=== PATIENT | female | born 1940 | race Caucasian/White ===

== ENCOUNTER 2017-02-04 13:22 | Inpatient (IN) | payer OTHER, BC ==
[~2017-02-04] VITALS: Ht 162.6 cm; Wt 68.0 kg
--- NOTE | ~2017-02-04 | EKG ---
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 : 1940 Requested By: Rishi Mota Order Number: [id number] MD: Juan Barber Measurements Intervals [place] Rate: 79 P: 26 VT: 172 QRS: -24 QRSD: 96 T: 125 QT: 385 QTc: 442 Interpretive Statements Sinus rhythm LVH with secondary repolarization abnormality Anterior Q waves, possibly due to LVH Compared to ECG 08/10/2012 13:04:29 Left ventricular hypertrophy now present ST and T wave abnormality is now present Electronically Signed On 02-05-2017 9:02:30 CDT by Juan Barber [email or web address] <ELECTRONICALLY SIGNED> By: Juan Barber MD, FACC 02/05/17 [id number] [id number] Juan Barber MD, [facility] /EPI
--- NOTE | ~2017-02-04 | 2DMMODE ---
[facility] [address] [place] [address] 2 D/M-MODE ECHOCARDIOGRAM Name: SALOME VALDEZ Room #: 429-P [facility]#: [id number] Admission: 02/05/17 Attend Phys: Esa Moulton, Discharge: Date of : 38 Date of Service: 02/05/17 1228 Report #: [id number] THIS REPORT FOR: //name// APPROVED REPORT Study performed: 02/05/2017 11:37:23 EXAM: Comprehensive 2D, Doppler, and color-flow Echocardiogram Patient Location: Bedside Room #: 429 Status: routine BSA: 1.73 HR: 83 bpm BP: 174/75 mmHg Other Information Study Quality: Good Indications CVA/TIA Diabetes Hypertension/HDD Echo Enhancing Agent Indication: Rule out Shunt Agent(s) / Amount(s) Used: Agitated Saline 7 cc 2D Dimensions RVDd: 33.78 mm LVEF(%): 59.39 (>50%) IVSd: 9.81 (7-11mm) LVOT Diam: 22.12 (18-24mm) LVDd: 54.73 mm PWd: 10.03 (7-11mm) Ascending Ao: 31.52 (22-36mm) LVDs: 37.28 (25-40mm) Aortic Root: 31.06 mm IVC: 18.00 mm Dejesus's LVEF: 59.39 % Volumes Left Atrial Volume (Systole) Single Plane 4CH: 48.41 mL Single Plane 2CH: 50.80 mL LA ESV Index: 32.00 mL/m2 Aortic Valve AoV Peak Fabian.: 1.66 m/s AO Peak Gr.: 10.99 mmHg LVOT Max P.97 mmHg LVOT Max V: 1.00 m/s [facility] [place] [address] 2 D/M-MODE ECHOCARDIOGRAM Name: SALOME VALDEZ Room #: 429-P [facility] .R.#: [id number] Admission: 02/05/17 Attend Phys: Esa Moulton, Discharge: Date of : 38 Date of Service: 02/05/17 1228 Report #: [id number] CARL Vmax: 2.31 cm2 Mitral Valve E/A Ratio: 0.7 MV Decel. Time: 335.62 ms MV E Max Fabian.: 0.65 m/s MV A Fabian.: 0.90 m/s MV PHT: 97.33 ms IVRT: 143.02 ms Pulmonary Valve PV Peak Fabian.: 0.95 m/s PV Peak Gr.: 3.62 mmHg Pulmonary Vein P Vein S: 0.59 m/s P Vein A: 0.28 m/s P Vein D: 0.28 m/s P Vein A Dur.: 92.3 msec P Vein S/D Ratio: 2.11 Left Ventricle The left ventricle is normal size. There is normal left ventricular wall thickness. The left ventricular systolic function is normal. The left ventricular ejection fraction is within the normal range. LVEF is 60-65%. Grade I - abnormal relaxation pattern. Right Ventricle The right ventricle is normal size. The right ventricular systolic function is normal. Atria The left atrium size is normal. Interatrial septum is intact without evidence of ASD or PFO. The right atrium size is normal. Aortic Valve The aortic valve is normal in structure. No aortic regurgitation is present. There is no aortic valvular stenosis. Mitral Valve The mitral valve is normal in structure. Trace mitral regurgitation. No evidence of mitral valve stenosis. Tricuspid Valve The tricuspid valve is normal in structure. There is no tricuspid valve regurgitation noted. Pulmonic Valve The pulmonary valve is normal in structure. There is no pulmonic [address] [address] 2 D/M-MODE ECHOCARDIOGRAM Name: SALOME VALDEZ Room #: 429-P [facility].#: [id number] Admission: 02/05/17 Attend Phys: Esa Moulton, Discharge: Date of : 38 Date of Service: 02/05/17 1228 Report #: [id number] valvular regurgitation. Great Vessels The aortic root is normal in size. IVC is normal in size and collapses >50% with inspiration. Pericardium There is no pericardial effusion. <Conclusion> LVEF is 60-65%. The left atrium size is normal. The right atrium size is normal. Interatrial septum is intact without evidence of ASD or PFO. The aortic valve is normal in structure. The mitral valve is normal in structure. Trace mitral regurgitation. The tricuspid valve is normal in structure. The pulmonary valve is normal in structure. There is no pericardial effusion. <ELECTRONICALLY SIGNED> By: Ari Franco MD 02/05/17 1228 1228 27 Ari Franco MD /INF
[~2017-02-04 13:22] MED LIST: AUGMENTIN 875875 MG PO; B12INJ; CALCIUM +D & M1 EACH PO; CINNAMON BARK1 GM PO; COQ-10100 MG PO; CYMBALTA60 MG; FISH OIL 1,2001 EAC4 PO; FLAXSEED1000 MG PO; FOLIC ACID1 MG; FUROSEMIDE 20 M20 M1; GABAPENTIN; GLUCOPHAGE1000 MG PO; GLUCOSAMINE-MS1 EAC3 PO; HYDROCHLOROTHIA25 M1; HYDROCODON-ACE1 EAC5 PO; INVANZ 1GM/NS 101 GM; KEFLEX500 M1 PO; LIDODERM 5%1 PATCH TOP; LIPITOR20 MG; METFORMIN HCL500 MG PO; MOBIC15 MG PO; MULTIVITAMINS1 EAC7 PO; NEURONTIN600 MG PO; NORCO 10-325 T1 EACH PO; OXYCONTIN10 M1; PERCOCET 5-3251 EACH PO; PERCOCET PO; POTASSIUM20; PREDNISONE 5 MG5 M1 PO; PROLIA60 MG/1 ML SQ; RESVERATROL250 MG PO; VALIUM5 MG PO; VANCOMYCIN1 GM/100 M; ZANTAC 150MG T150 M1; [UNRECOGNIZED DRUG - OTHER]
[2017-02-04 13:25] VITALS: BP 85/48
[2017-02-04 13:46] LABS: HEMATOCRIT 40.8 % (37.0-47.0); HEMOGLOBIN 13.7 gm/dL (12.0-15.0); MCH 29.6 pg (26.0-34.0); MCHC 33.5 g/dL (28.0-37.0); MCV 88.5 fL (80.0-100.0); PLATELET COUNT 180 thou/uL (150-400); RBC 4.61 mil/uL (4.20-5.00); RDW 13.5 % (10.5-14.5); WBC 3.9 thou/uL (4.0-11.0)
[2017-02-04 13:47] LABS: MANUAL DIFF YES
[2017-02-04 13:59] LABS: PROTIME 10.5 Seconds (9.3-11.4)
[2017-02-04] MEDS ORDERED: CELEBREX 200 M200 M1 PO (14:07)
[2017-02-04 14:24] LABS: ALBUMIN 3.5 g/dL (3.4-5.0); ALKALINE PHOSPHATASE 94 U/L (46-116); BUN 22 mg/dL (7-18); CALCIUM 8.9 mg/dL (8.5-10.1); CO2 30 mmol/L (21-32); CREATININE 1.2 mg/dL (0.6-1.0); GLUCOSE 249 mg/dL (74-106); SGOT 30 U/L (15-37); SGPT 23 U/L (30-65); TOTAL BILIRUBIN 0.5 mg/dL (<0.1-1.0); TOTAL PROTEIN 6.7 g/dL (6.4-8.2); TROPONIN-I < 0.04 ng/mL (<0.04-0.07)
[2017-02-04 14:32] LABS: ANION GAP 6 mmol/L (7-16); CHLORIDE 97 mmol/L (98-107); SODIUM 133 mmol/L (136-145)
[2017-02-04 14:35] LABS: POTASSIUM 2.9 mmol/L (3.5-5.1)
[2017-02-04 14:39] LABS: ABSOLUTE NEUTROPHILS 3.4 thou/uL (1.4-8.2); ANISOCYTOSIS 1+; MICROCYTES SLIGHT; TOTAL CELL COUNT 100
[2017-02-04 14:46] VITALS: BP 108/57
[2017-02-04 14:50] LABS: URINE BILIRUBIN NEGATIVE (Negative); URINE BLOOD NEGATIVE (Negative); URINE COLOR YELLOW; URINE GLUCOSE-RANDOM* NEGATIVE (Negative); URINE KETONES NEGATIVE (Negative); URINE NITRITE NEGATIVE (Negative); URINE PROTEIN (DIPSTICK) NEGATIVE (Negative); URINE UROBILINOGEN 0.2 E.U./dl (0.2-1.0)
[2017-02-04 16:22] VITALS: BP 126/66
[2017-02-04 17:10] LABS: TSH 1.334 uIU/mL (0.358-3.740)
[2017-02-04 17:36] LABS: FOLIC ACID 38.8 ng/mL (8.6-58.9)
[2017-02-04] MEDS ORDERED: PERCOCET 7.5-31 EACH PO (17:37)
[2017-02-04] MEDS ORDERED: CRANBERRY300 MG (17:40)
[2017-02-04 19:59] VITALS: BP 156/88
[2017-02-05 03:21] VITALS: BP 174/95
[2017-02-05 04:12] LABS: GLYCOHEMOGLOBIN (HGB A1C) 5.9 % (4.8-5.6)
[2017-02-05 06:40] LABS: CALCIUM 8.8 mg/dL (8.5-10.1); CREATININE 0.7 mg/dL (0.6-1.0); MAGNESIUM 1.7 mg/dL (1.8-2.4)
[2017-02-05 06:53] LABS: CHOLESTEROL 179 mg/dL (<200); HDL CHOLESTEROL 86 mg/dL (>40); LDL CHOLESTEROL 77 mg/dL (<100); TC:HDL 2.1 Ratio (Not establshd); TRIGLYCERIDE 81 mg/dL (<150); VLDL 16 mg/dL (<40)
[2017-02-05 15:39] VITALS: BP 165/101
[2017-02-05] MEDS ORDERED: ASPIR 8181 MG PO (16:01)
[2017-02-05 16:02] VITALS: BP 165/101
[2017-02-05 16:47] VITALS: BP 145/81
== END 2017-02-05 17:28 | disposition home or self-care (01) | DRG 314 ==
LOC: ER 13:22 → EROBS 15:35 → 4E 15:35 → ENTRNSPT 02-05 16:46 → 4E 02-05 17:28
PROVIDERS: Nurse Practitioner; Physician Assistant; Psychiatry & Neurology Neurology
DX: I95.9 Hypotension, unspecified (principal); G93.40 Encephalopathy, unspecified; N17.9 Acute kidney failure, unspecified; G45.9 Transient cerebral ischemic attack, unspecified; E11.65 Type 2 diabetes mellitus with hyperglycemia; E78.5 Hyperlipidemia, unspecified; Z96.653 Presence of artificial knee joint, bilateral; E11.42 Type 2 diabetes mellitus with diabetic polyneuropathy; I10 Essential (primary) hypertension; R27.0 Ataxia, unspecified; E87.6 Hypokalemia; G89.4 Chronic pain syndrome; M19.90 Unspecified osteoarthritis, unspecified site; Z85.828 Personal history of other malignant neoplasm of skin; Z98.84 Bariatric surgery status; Z90.49 Acquired absence of other specified parts of digestive tract; Z79.84 Long term (current) use of oral hypoglycemic drugs; Z79.899 Other long term (current) drug therapy; Z88.8 Allergy status to other drugs, medicaments and biological substances

== ENCOUNTER 2018-02-19 13:52 | Emergency (ER) | payer OTHER, BC ==
[~2018-02-19] VITALS: Ht 162.6 cm; Wt 55.8 kg
[~2018-02-19 13:52] MED LIST changes: +ASPIR 8181 MG PO; +CELEBREX 200 M200 M1 PO; +CRANBERRY300 MG; +PERCOCET 7.5-31 EACH PO
[2018-02-19 15:13] LABS: HEMATOCRIT 37.2 % (37.0-47.0); HEMOGLOBIN 12.6 gm/dL (12.0-15.0); MCH 29.6 pg (26.0-34.0); MCHC 33.9 g/dL (28.0-37.0); MCV 87.5 fL (80.0-100.0); RBC 4.25 mil/uL (4.20-5.00); RDW 13.5 % (10.5-14.5); WBC 8.8 thou/uL (4.0-11.0)
[2018-02-19 15:26] LABS: CALCIUM 9.1 mg/dL (8.5-10.1); CREATININE 0.9 mg/dL (0.6-1.0)
[2018-02-19 15:28] LABS: POTASSIUM 2.8 mmol/L (3.5-5.1)
[2018-02-19 15:30] LABS: URIC ACID* 4.8 mg/dL (2.6-7.2)
[2018-02-19] MEDS ORDERED: POTASSIUM20 PO (15:42)
[2018-02-19] MEDS ORDERED: VOLTAREN GEL 1100 G1 TOP (16:00)
[2018-02-19 16:08] VITALS: BP 154/78
== END 2018-02-19 16:28 | disposition home or self-care (01) ==
LOC: ER 13:52
PROVIDERS: Physician Assistant
DX: M79.645 Pain in left finger(s) (principal); M13.872 Other specified arthritis, left ankle and foot; E87.6 Hypokalemia; E11.40 Type 2 diabetes mellitus with diabetic neuropathy, unspecified; Z98.84 Bariatric surgery status; Z90.49 Acquired absence of other specified parts of digestive tract; Z85.828 Personal history of other malignant neoplasm of skin; Z96.653 Presence of artificial knee joint, bilateral; K90.9 Intestinal malabsorption, unspecified; Z88.8 Allergy status to other drugs, medicaments and biological substances

== ENCOUNTER 2018-04-01 14:40 | Emergency (ER) | payer OTHER, BC ==
[~2018-04-01] VITALS: Ht 162.6 cm; Wt 59.0 kg
[~2018-04-01 14:40] MED LIST changes: +POTASSIUM20 PO; +VOLTAREN GEL 1100 G1 TOP
[2018-04-01] MEDS ORDERED: OXYCODONE HCL15 MG PO (15:04)
[2018-04-01 15:55] VITALS: BP 150/78
[2018-04-01] MEDS ORDERED: LIDOCAINE1 EACH TRANSDERM (16:00)
== END 2018-04-01 16:00 | disposition home or self-care (01) ==
LOC: ER 14:40
DX: S20.211A Contusion of right front wall of thorax, initial encounter (principal); M19.90 Unspecified osteoarthritis, unspecified site; E11.40 Type 2 diabetes mellitus with diabetic neuropathy, unspecified; Z88.8 Allergy status to other drugs, medicaments and biological substances; Z85.828 Personal history of other malignant neoplasm of skin; Z96.653 Presence of artificial knee joint, bilateral; Z90.49 Acquired absence of other specified parts of digestive tract; W10.9XXA Fall (on) (from) unspecified stairs and steps, initial encounter; Y92.89 Other specified places as the place of occurrence of the external cause; Y93.89 Activity, other specified; Y99.8 Other external cause status

== ENCOUNTER 2018-08-09 14:54 | Emergency (ER) | payer OTHER, BC ==
[~2018-08-09] VITALS: Ht 165.1 cm; Wt 61.2 kg
[~2018-08-09 14:54] MED LIST changes: +LIDOCAINE1 EACH TRANSDERM; +OXYCODONE HCL15 MG PO
[2018-08-09 15:24] LABS: ABSOLUTE NEUTROPHILS 12.3 thou/uL (1.4-8.2); BASOPHILS 0.4 % (0.0-2.0); EOSINOPHILS 0.3 % (0.0-3.0); HEMATOCRIT 40.6 % (37.0-47.0); HEMOGLOBIN 13.3 gm/dL (12.0-15.0); LYMPHOCYTES 4.9 % (24.0-44.0); MCH 29.2 pg (26.0-34.0); MCHC 32.7 g/dL (28.0-37.0); MCV 89.3 fL (80.0-100.0); MONOCYTES 6.7 % (1.0-8.0); PLATELET COUNT 237 thou/uL (150-400); POLYS 87.7 % (36.0-66.0); RBC 4.55 mil/uL (4.20-5.00); RDW 13.6 % (10.5-14.5); WBC 14.1 thou/uL (4.0-11.0)
[2018-08-09 15:27] LABS: ANION GAP 12 mmol/L (7-16); BUN 41 mg/dL (7-18); CALCIUM 9.1 mg/dL (8.5-10.1); CHLORIDE 99 mmol/L (98-107); CO2 28 mmol/L (21-32); CREATININE 1.2 mg/dL (0.6-1.0); GLUCOSE 176 mg/dL (74-106); POTASSIUM 3.6 mmol/L (3.5-5.1); SODIUM 139 mmol/L (136-145)
[2018-08-09 15:36] LABS: TROPONIN-I <0.06 ng/mL (<0.06)
[2018-08-09 15:37] LABS: APTT 25.5 Seconds (24.5-32.8); PROTIME 10.3 Seconds (9.3-11.4)
[2018-08-09 17:46] VITALS: BP 149/84
--- NOTE | 2018-08-10 17:01 | EKG ---
[facility] [place] [address] ELECTROCARDIOGRAM REPORT Name: SALOME VALDEZ [id number] ������������������ Admission: 08/09/18 ������������������ Attend Phys: Discharge: 08/09/18 ������������������ Date of : 38 Report #: [id number] ����������������������������������������������������������������� [id number] THIS REPORT FOR: //name// [facility] ED Test Date: 2018-08-09 Test Time: 15:21:20 Pat Name: SALOME VALDEZ Department: Room: Gender: F Vegetable Handler: SUDARSHAN : 1940 Requested By: Tana Patel Order Number: [id number] MD: Juan Barber Measurements Intervals [place] Rate: 78 P: 53 MA: 172 QRS: -22 QRSD: 104 T: 98 QT: 383 QTc: 437 Interpretive Statements Sinus rhythm Atrial premature complexes Borderline left axis deviation Nonspecific ST and T wave abnormality Compared to ECG 02/04/2017 13:56:56 Atrial premature complex(es) now present Electronically Signed On 08-10-2018 17:01:16 CDT by Juan Barber [email or web address] ��������������������������������������������� <ELECTRONICALLY SIGNED> ���������������������������������������� By: Juan Barber MD, [facility] ��������������������������������������������� 08/10/18 1701 [id number] Juan Barber MD, FAC /EPI
== END 2018-08-09 18:16 | disposition home or self-care (01) ==
LOC: ER 14:54
PROVIDERS: Emergency Medicine
DX: I95.1 Orthostatic hypotension (principal); E86.0 Dehydration; R19.7 Diarrhea, unspecified; M19.90 Unspecified osteoarthritis, unspecified site; E11.40 Type 2 diabetes mellitus with diabetic neuropathy, unspecified; Z88.8 Allergy status to other drugs, medicaments and biological substances; Z96.653 Presence of artificial knee joint, bilateral; Z90.49 Acquired absence of other specified parts of digestive tract; Z85.828 Personal history of other malignant neoplasm of skin